=== PATIENT | female | born 1980 | race African-American/Black ===

== ENCOUNTER 2019-03-31 08:11 | Emergency (ER) | payer OTHER ==
[2019-03-31 08:21] VITALS: BP 154/76; PULSE 86; TEMP 98.2; BMI 37.5
--- NOTE | 2019-03-31 08:33 | PDOC ---
History of Present Illness - General Chief Complaint: Pain, Acute Stated Complaint: BACK/NECK PAIN Time Seen by Provider: 03/31/19 08:27 History Source: Patient Exam Limitations: No Limitations Past History - Travel Traveled outside of the country in the last 30 days: No Close contact w/someone who was outside of country & ill: No - Past Medical History Allergies/Adverse Reactions: Allergies Allergy/AdvReac Type Severity Reaction Status Date / Time Penicillins Allergy Verified 03/31/19 08:28 Home Medications: Ambulatory Orders Methocarbamol [Robaxin -] 500 mg PO BID #14 tablet 03/31/19 Methylprednisolone [Medrol Dose Garrick] 4 mg PO ASDIR #21 tablet 03/31/19 COPD: No - Psycho Social/Smoking Cessation Hx Smoking History: Current every day smoker Number of Cigarettes Smoked Daily: 4 Information on smoking cessation initiated: No Hx Alcohol Use: No Drug/Substance Use Hx: No Substance Use Type: None Review of Systems - Review of Systems Able to Perform ROS?: Yes Comments:: 03/31/19 08:33 CONSTITUTIONAL: Absent: fever, chills, diaphoresis, generalized weakness, malaise, loss of appetite GASTROINTESTINAL: Absent: abdominal pain, abdominal distension, nausea, vomiting, diarrhea, constipation, melena, hematochezia GENITOURINARY: Absent: dysuria, frequency, urgency, hesitancy, hematuria, flank pain, genital pain MUSCULOSKELETAL: Present: upper back pain/neck pain Absent: arthralgia, joint swelling SKIN: Absent: rash, itching, pallor NEUROLOGIC: Absent: headache, focal weakness or paresthesias, dizziness, unsteady gait, seizure, mental status changes, bladder or bowel incontinence PSYCHIATRIC: Absent: anxiety, depression, suicidal or homicidal ideation, hallucinations. Is the patient limited [place] proficient: No *Physical Exam - Vital Signs Last Vital Signs Temp Pulse Resp BP Pulse Ox 98.2 F 86 14 154/76 98 03/31/19 08:18 03/31/19 08:18 03/31/19 08:18 03/31/19 08:18 03/31/19 08:18 - Physical Exam Comments: 03/31/19 08:33 GENERAL: Well developed, well nourished. Awake and alert. No acute distress. NECK: Supple. Full ROM. No JVD. No thyromegaly. No lymphadenopathy. MUSCULOSKELETAL TTP of the R lateral trapezius muscle with palpable knot. Normal range of motion at all joints. No bony deformities or tenderness. No CVA tenderness. EXTREMITIES: No cyanosis. No clubbing. No edema. No calf tenderness. SKIN: Warm and dry. Normal capillary refill. No rashes. No jaundice. NEUROLOGICAL: Alert, awake, appropriate. Cranial nerves 2-12 intact. No deficits to light touch and temperature in face, upper extremities and lower extremities. No motor deficits in the in face, upper extremities and lower extremities. Normoreflexic in the upper and lower extremities. Normal speech. Toes are down- going bilaterally. Gait is normal without ataxia. PSYCHIATRIC: Cooperative. Good eye contact. Appropriate mood and affect. Medical Decision Making - Medical Decision Making 03/31/19 08:33 Patient is a 38-year-old female no past medical history presents to the ER with neck pain since Tuesday. She states that she woke up from sleep and noticed a palpable knot in her right shoulder. She states that when she moves in certain directions she has shooting pain down her arm. Denies trauma, fever, fall, numbness and tingling and weakness to the affected extremity. A/P: Neck pain -Pt with TTP of the right lateral trapezius muscle with palpable knot consistent with muscle spasm. -No trauma, or fever. Full range of motion of the neck present. -Pt is neurologically intact on exam with no focal findings. -Toradol, Flexeril, lidocaine patch given with relief of symptoms -DC home. Ortho follow up given for if symptoms do not resolve. -I discussed the physical exam findings, ancillary test results and final diagnoses with the patient. I answered all of the patient's questions. The patient was satisfied with the care received and felt comfortable with the discharge plan and treatment plan. The Patient agrees to follow up with the primary care physician/specialist within 24-72 hours. Return precautions were given. Discharge - Discharge Information Problems reviewed: Yes Clinical Impression/Diagnosis: Neck pain Condition: Stable Disposition: HOME - Admission No - Additional Discharge Information Prescriptions: Methocarbamol [Robaxin -] 500 mg PO BID #14 tablet Methylprednisolone [Medrol Dose Garrick] 4 mg PO ASDIR #21 tablet - Follow up/Referral Referrals: Kvng Cadena MD [Primary Care Provider] - - Patient Discharge Instructions Patient Printed Discharge Instructions: DI for Neck Pain Additional Instructions: You were evaluated for your neck pain today. It is most likely caused by a muscle spasm in your trapezius muscle. Please take the Robaxin as directed. This is a muscle relaxer. Do not drink alcohol or drive after taking this medication as it may make you drowsy. Take the Medrol Dosepak starting today as directed. You may apply warm packs to the area and use icy hot to help with the pain. Please follow-up with your primary care doctor this week. Return to the ER for worsening pain, fever, numbness and tingling to the arm or if you have any changes in your symptoms. - Post Discharge Activity Work/Back to School Note: Back to Work
[2019-03-31] MEDS ORDERED: KETOROLAC TROMETHAMINE 60 MG/2 ML VIAL IM ONE (08:46)
[2019-03-31] MEDS ORDERED: CYCLOBENZAPRINE HCL 10 MG TABLET (FP) PO ONE (08:46)
[2019-03-31] MEDS ORDERED: LIDOCAINE 5% TOPICAL PATCH TP ONE (08:47)
[2019-03-31] MEDS ORDERED: LIDOCAINE 5% TOPICAL PATCH ONE (08:52)
[2019-03-31] MEDS ORDERED: CYCLOBENZAPRINE HCL 10 MG TABLET (FP) ONE (08:52)
[2019-03-31] MEDS ORDERED: KETOROLAC TROMETHAMINE 60 MG/2 ML VIAL ONE (08:52)
== END 2019-03-31 09:19 | disposition home or self-care (01) ==
LOC: JER 08:11
PROC: 3E0233Z Introduction of Anti-inflammatory into Muscle, Percutaneous Approach (ICD-10-PCS; principal; 2019-03-31)
DX: M54.2 Cervicalgia (principal); Z88.0 Allergy status to penicillin
CPT/HCPCS: 99282-25